=== PATIENT | female | born 1985 | race Caucasian/White ===

== ENCOUNTER 2017-06-08 19:16 | Inpatient (IN) | payer MEDICAID ==
[~2017-06-08] VITALS: Ht 170.2 cm; Wt 64.6 kg
[2017-06-08] MEDS ORDERED: HALOPERIDOL 5 MG TABLET PO PRN (21:00)
[2017-06-08 21:31] LABS: BASOPHILS # (AUTO) 0.04 K/uL (0.00-0.20); BASOPHILS % (AUTO) 0.4 % (0.0-2.0); EOSINOPHILS % (AUTO) 0 % (1.0-6.0); HEMATOCRIT 37.6 % (36-46); HEMOGLOBIN 12.8 g/dL (12.0-16.0); LYMPHOCYTES # (AUTO) 0.7 K/uL (1.0-4.8); LYMPHOCYTES % (AUTO) 6.6 % (22.0-44.0); MEAN CORPUSCULAR HEMOGLOBIN 31.2 pg (26.0-34.0); MEAN CORPUSCULAR HGB CONC 34.1 G/dL (31.0-37.0); MEAN CORPUSCULAR VOLUME 91 fL (80-100); MONOCYTES # (AUTO) 0.5 K/uL (0.1-1.0); MONOCYTES % (AUTO) 4.2 % (2.0-9.0); NEUTROPHILS # (AUTO) 9.7 K/uL (1.8-7.7); PLATELET COUNT (AUTO) 275 K/uL (150-450); RED BLOOD CELL COUNT(AUTO) 4.11 MIL/uL (4.00-5.20); RED CELL DISTRIBUTION WIDTH 12.8 % (11.5-14.5)
[2017-06-08 21:33] LABS: NEUTROPHILS % (AUTO) 88.9 % (40.0-70.0)
[2017-06-08 21:41] LABS: ANION GAP 9 mmol/L (8-16); CALCIUM, TOTAL 8.6 mg/dL (8.8-10.5); CARBON DIOXIDE 26 mmol/L (22-29); CHLORIDE 99 mmol/L (98-107); CREATININE 0.87 mg/dL (0.60-1.30); GLOMERULAR FILTR. RATE CALC > 60 mL/min (>60); POTASSIUM 3.7 mmol/L (3.5-5.1); SODIUM SERUM 134 mmol/L (136-145); UREA NITROGEN, BLOOD 16 mg/dL (7-18)
[2017-06-08 21:45] LABS: ALANINE AMINOTRANSFERASE 19 U/L (12-78); ALBUMIN 4.1 g/dL (3.4-5.0); ASPARTATE AMINOTRANSFERASE 24 U/L (15-37); BILIRUBIN,TOTAL 0.6 mg/dL (0.1-1.0); TOTAL PROTEIN, SERUM 7.7 g/dL (6.4-8.2)
[2017-06-08 22:46] LABS: APPEARANCE,URINE CLOUDY (CLEAR); GLUCOSE, URINE (UA) NEGATIVE (NEGATIVE); KETONES,URINE >=80 mg/dL (NEGATIVE); LEUKOCYTE ESTERASE ,URINE LARGE (NEGATIVE); OCCULT BLOOD,URINE MODERATE (NEGATIVE); PH,URINE 5.5 (5.0-8.0); PROTEIN,URINE NEGATIVE (NEGATIVE)
[2017-06-08 22:50] LABS: ADD UA MICROSCOPIC YES
[2017-06-08 23:02] LABS: SQUAMOUS EPITHELIAL CELL,UR Moderate /LPF (None Seen)
[2017-06-08 23:03] LABS: WBC,URINE 51-100 /HPF (0-5)
[2017-06-08] MEDS ORDERED: CEPHALEXIN MONOHYDRATE 500 MG CAPSULE PO ONE (23:30)
[2017-06-09] MEDS ORDERED: INFLUENZA VIRUS VACCINE QVS 2017-18 (3YR+)/PF 60 MCG/0.5 ML SYRINGE IM ONE (01:15)
[2017-06-09 01:59] VITALS: BP 128/85
[2017-06-09] MEDS: LORazepam 2 MG TABLET PO PRN ×2 (08:59→16:39)
[2017-06-09] MEDS ORDERED: IBUPROFEN 400 MG TABLET PO PRN (15:00)
[2017-06-09] MEDS: CEPHALEXIN MONOHYDRATE 500 MG CAPSULE PO SCH (16:38)
[2017-06-09] MEDS: OLANZapine 5 MG TABLET PO SCH (16:38)
[2017-06-09 16:40] VITALS: BP 117/68
[2017-06-10] MEDS: CEPHALEXIN MONOHYDRATE 500 MG CAPSULE PO SCH ×3 (00:30→16:39)
[2017-06-10 06:47] VITALS: BP 104/78
[2017-06-10 08:15] VITALS: BP 146/64
[2017-06-10] MEDS: OLANZapine 5 MG TABLET PO SCH (08:31)
[2017-06-10 09:18] LABS: ANION GAP 9 mmol/L (8-16); CALCIUM, TOTAL 8.7 mg/dL (8.8-10.5); CARBON DIOXIDE 27 mmol/L (22-29); CHLORIDE 101 mmol/L (98-107); CHOL/HDL RATIO 3.1 (3.9-5.7); CREATININE 0.77 mg/dL (0.60-1.30); GLOMERULAR FILTR. RATE CALC > 60 mL/min (>60); POTASSIUM 3.6 mmol/L (3.5-5.1); SODIUM SERUM 137 mmol/L (136-145); THYROID STIMULATING HORMONE 1.12 uIU/mL (0.36-3.74); UREA NITROGEN, BLOOD 18 mg/dL (7-18)
[2017-06-10 09:21] LABS: THYROID STIMULATING HORMONE 1.1 uIU/mL (0.36-3.74)
[2017-06-10 16:30] VITALS: BP 116/70
[2017-06-10] MEDS: OLANZapine 7.5 MG TABLET PO SCH (16:39)
[2017-06-11 00:09] VITALS: BP 114/66
[2017-06-11] MEDS: CEPHALEXIN MONOHYDRATE 500 MG CAPSULE PO SCH ×3 (00:11→17:16)
[2017-06-11 08:35] VITALS: BP 130/72
[2017-06-11] MEDS: OLANZapine 7.5 MG TABLET PO SCH (08:37)
[2017-06-11 16:09] VITALS: BP 108/63
[2017-06-11] MEDS: OLANZapine 10 MG TABLET PO SCH (17:16)
[2017-06-11] MEDS: ZOLPIDEM TARTRATE 10 MG TABLET PO PRN (21:16)
[2017-06-12 00:05] VITALS: BP 105/62
[2017-06-12] MEDS: ACETAMINOPHEN 325 MG TABLET PO PRN ×2 (00:23→21:28)
[2017-06-12] MEDS: CEPHALEXIN MONOHYDRATE 500 MG CAPSULE PO SCH ×3 (00:23→16:21)
[2017-06-12 08:14] VITALS: BP 126/76
[2017-06-12] MEDS: OLANZapine 10 MG TABLET PO SCH ×2 (09:26→16:21)
[2017-06-12 16:43] VITALS: BP 104/62
[2017-06-12] MEDS: ZOLPIDEM TARTRATE 10 MG TABLET PO PRN (20:28)
[2017-06-13 00:01] VITALS: BP 104/60
[2017-06-13] MEDS: CEPHALEXIN MONOHYDRATE 500 MG CAPSULE PO SCH ×3 (00:13→16:49)
[2017-06-13] MEDS: LORazepam 2 MG TABLET PO PRN (00:25)
[2017-06-13 08:07] VITALS: BP 110/60
[2017-06-13] MEDS: OLANZapine 10 MG TABLET PO SCH ×2 (08:38→16:49)
[2017-06-13 17:37] VITALS: BP 109/65
[2017-06-13] MEDS: ZOLPIDEM TARTRATE 10 MG TABLET PO PRN (20:50)
[2017-06-13 23:40] VITALS: BP 102/61
[2017-06-13] MEDS: ACETAMINOPHEN 325 MG TABLET PO PRN (23:44)
[2017-06-14] MEDS: CEPHALEXIN MONOHYDRATE 500 MG CAPSULE PO SCH ×2 (01:21→08:28)
[2017-06-14 04:33] VITALS: BP 108/66
[2017-06-14 08:18] VITALS: BP 105/69
[2017-06-14] MEDS: OLANZapine 10 MG TABLET PO SCH ×2 (08:29→16:21)
[2017-06-14 16:18] VITALS: BP 95/61
[2017-06-14] MEDS: ZOLPIDEM TARTRATE 10 MG TABLET PO PRN (20:43)
[2017-06-15 01:13] VITALS: BP 111/69
[2017-06-15 08:49] VITALS: BP 105/66
[2017-06-15] MEDS: OLANZapine 10 MG TABLET PO SCH ×2 (09:31→16:31)
[2017-06-15 16:12] VITALS: BP 102/60
[2017-06-16 00:37] VITALS: BP 111/68
[2017-06-16] MEDS: ZOLPIDEM TARTRATE 10 MG TABLET PO PRN (00:48)
[2017-06-16 08:29] VITALS: BP 113/62
[2017-06-16] MEDS: OLANZapine 10 MG TABLET PO SCH ×2 (10:03→16:18)
[2017-06-16 16:13] VITALS: BP 105/77
[2017-06-17 02:27] VITALS: BP 113/64
[2017-06-17 08:10] VITALS: BP 121/70
[2017-06-17] MEDS: OLANZapine 10 MG TABLET PO SCH ×2 (08:46→16:13)
[2017-06-17 16:22] VITALS: BP 106/66
[2017-06-17] MEDS: ZOLPIDEM TARTRATE 10 MG TABLET PO PRN (21:35)
[2017-06-18 00:05] VITALS: BP 104/61
[2017-06-18 08:22] VITALS: BP 115/72
[2017-06-18] MEDS: OLANZapine 10 MG TABLET PO SCH (08:48)
[2017-06-18] MEDS ORDERED: OLAN10TA3 PO (10:32)
== END 2017-06-18 13:20 | disposition home or self-care (01) | DRG 751 ==
LOC: EMS 19:21 → EEVIPCON 19:21 → B2S 21:34
PROVIDERS: ADMIT Psychiatry & Neurology Psychiatry; ATTEND Psychiatry & Neurology Psychiatry
DX: F29 Unspecified psychosis not due to a substance or known physiological condition (principal); E87.1 Hypo-osmolality and hyponatremia; F22 Delusional disorders; R73.9 Hyperglycemia, unspecified; G47.00 Insomnia, unspecified; N39.0 Urinary tract infection, site not specified; Z79.899 Other long term (current) drug therapy; Z28.21 Immunization not carried out because of patient refusal
CPT/HCPCS: 83036; 84439; 84443; 87086; 99285; G0480